=== PATIENT | female | born 1940 | race American Indian/Alaskan Native ===

== ENCOUNTER 2017-12-17 11:02 | Day surgery (SDC) | payer MEDICARE ==
[2017-12-17 11:50] LABS: BASO # 0.01 K/mm3 (0.0-2.0); BASO % 0.2 % (0.0-3.0); EOS # 0.1 (0.0-0.7); EOS % 2.5 % (1.5-5.0); GRAN # 3.14 (1.4-6.5); GRAN % 70.7 % (50.0-68.0); HEMOGLOBIN 8.6 g/dL (12.0-16.0); LYMPH % 22.1 % (22.0-35.0); MEAN CORPUSCULAR HEMOGLOBIN 30.5 pg (25.0-35.0); MEAN CORPUSCULAR HGB CONC 32.1 g/dl (31.0-37.0); MEAN PLATELET VOLUME 9.5 fl (7.0-11.0); MONO # 0.2 (0.1-0.6); MONO % 4.5 % (1.0-6.0); RBC 2.82 10^6/uL (3.5-6.1); RED CELL DISTRIBUTION WIDTH 16.6 % (11.5-14.5); WHITE BLOOD COUNT 4.4 10^3/ul (4.5-11.0)
[2017-12-17 12:00] LABS: CALCIUM 9.3 mg/dL (8.4-10.5)
[2017-12-17 12:03] LABS: INR 1.04 (0.93-1.08); PARTIAL THROMBOPLASTIN TIME 22.5 Seconds (25.1-36.5)
[2017-12-17] MEDS ORDERED: Lidocaine 1% Inj (20ml) ONE (13:24)
[2017-12-17] MEDS ORDERED: Midazolam 2 MG/2 ML VIAL ONE (13:25)
[2017-12-17 14:31] VITALS: BMI 27.8
[2017-12-17] MEDS ORDERED: Oxycodone/Acetaminophen 5/325 mg Tab PO PRN (14:31)
[2017-12-17] MEDS ORDERED: Sodium Chloride 0.45% 1,000 ML IV SCH (14:45)
--- NOTE | 2017-12-17 15:37 | CT ---
PROCEDURE: CT guided pelvic bone marrow aspiration and biopsy HISTORY: Pancytopenia. Evaluate for multiple myeloma. Needs bone marrow aspiration and biopsy PHYSICIAN(S): Franklin Eisenberg MD. TECHNIQUE: The relative risks and indications of the procedure were explained to the patient and consent obtained. The patient was placed prone on the CT scanner and preliminary images through the Ned obtained. Conscious sedation and monitoring were provided throughout the procedure by a nurse. The right posterior superior iliac spine was selected for biopsy. A oblique posterior approach was selected and the area prepped and draped in the usual sterile fashion. 1% Xylocaine was used to anesthetize the skin and soft tissues. And on control bone biopsy needle was advanced to the right posterior superior iliac spine. Its position was confirmed with CT. Needle was advanced through the cortex. A bone marrow aspiration was performed. Next a long core biopsy was obtained with on control needle. The patient tolerated the procedure well. IMPRESSION: 1. CT-guided pelvic bone marrow aspiration and biopsy as described above.
[2017-12-17 15:59] VITALS: TEMP 98; O2SAT 92
[2017-12-17 16:10] VITALS: BP 152/76; PULSE 83; RESP 18
== END 2017-12-17 16:45 | disposition home or self-care (01) ==
LOC: SDS 11:02
PROVIDERS: ATTEND Radiology Vascular & Interventional Radiology
DX: C90.00 Multiple myeloma not having achieved remission (principal); D61.818 Other pancytopenia; Z95.0 Presence of cardiac pacemaker; I25.10 Atherosclerotic heart disease of native coronary artery without angina pectoris; E11.9 Type 2 diabetes mellitus without complications; Z95.1 Presence of aortocoronary bypass graft; I10 Essential (primary) hypertension
CPT/HCPCS: 36415; 38221; 80048; 85025; 85610; 85730; J2250; J2405; J3010; J7030